=== PATIENT | male | born 1995 | race Caucasian/White ===

== ENCOUNTER 2017-01-08 17:56 | Emergency (ER) | payer OTHER ==
[~2017-01-08] VITALS: Ht 170.2 cm; Wt 63.9 kg
[2017-01-08 18:04] VITALS: PULSE 64; TEMP 36.7; O2SAT 100; Ht 170.2 cm; Wt 63.9 kg
[2017-01-08] MEDS ORDERED: CETI10TA84 PO (18:17)
[2017-01-08] MEDS ORDERED: FLUT1INH7 INH (18:17)
[2017-01-08] MEDS ORDERED: MONT1TAB3 PO (18:17)
[2017-01-08] MEDS ORDERED: CLR10 PO (18:17)
[2017-01-08 18:18] VITALS: BP 162/83
[2017-01-08] MEDS ORDERED: GELATIN SPONGE 12-7MM EXT STA (18:18)
--- NOTE | 2017-01-08 19:09 | EMERGENCY ROOM VISIT NOTE ---
ED Visit Note First contact with patient: 18:12 Chief Complaint: "Deep cut finger right middle". History of Present Illness: This patient is a 21-year-old male who presents to the Emergency Department via private vehicle for evaluation of their R 3rd digit laceration. Patient sustained the laceration while opening a bottle and the top broke. They report a moderate amount of bleeding initially. They deny any numbness or tingling into the distal extremity. Patient rates his current discomfort as a 2/10. Patient's Tetanus status is currently up-to-date. Medications: As noted below Allergies: azithromycin, eggs PMH: No pertinent SHx: Pt. lives in [place] ROS: All pertinent positive and negative review of systems are appropriately documented in the History of Present Illness. Physical Exam: VITAL SIGNS - Vital signs and nursing notes were reviewed. Stable. GENERAL - 21-year-old male appearing his stated age who is in no acute distress. Communicates well with provider and answers questions appropriately. SKIN - There is a 0.4 cm long laceration/avulsion noted to the lateral aspect of the R 3rd digit. The edges DO NOT gape apart with traction. No foreign bodies appreciated. Upon further examination there are no deep structures including vessel, tendon, or bony structures appreciated. There is no active bleeding noted. MUSCULOSKELETAL - Laceration as described above. Full range of motion of the affected digit. NEUROLOGIC - Spinothalamic tract was found to be intact with ability to discriminate sharp versus dull sensation. No sensory defects of the dorsal column were appreciated utilizing light touch for evaluation. VASCULAR - Capillary refill was brisk. ED Course: Patient was seen and evaluated by myself. Costs and benefits of performing primary wound closure versus no repair were discussed with the patient who verbalizes understanding. Verbal consent was obtained prior to performing the procedure. Benefit of anesthetization was discussed, and the decision was made to clean the wound and applied Gelfoam rather than inject with needles as the risk outweighs the benefit. The wound was cleansed and prepped in the typical sterile fashion utilizing normal saline and Betadine. The wound was sterilely draped. Once proper anesthetization was established, the wound was further examined and demonstrated no deep involvement, rather he has an avulsion that is superficial but appears to have sliced the superficial veins perioral to the long edge causing continued bleeding. The wound was copiously irrigated with normal saline and Betadine. Gelfoam was applied without good hemostasis. I then applied tourniquet and applied Dermabond with slight bleeding continuing therefore Gelfoam was applied to this. This was with good hemostasis. Patient tolerated this well. Patient tolerated the procedure well. No complications were met. Neurovascularly intact postprocedure. In the evaluation and treatment of this patient, the following differential diagnoses were considered: Finger Fracture, Finger Dislocation, Finger Sprain, Finger Contusion, Jersey Finger, or Mallet Finger. Current/Historical Medications Scheduled Cetirizine (Zyrtec), 10 MG PO DAILY Fluticasone Furoate-Vilanterol (Breo Ellipta 200-25 Mcg/INH), 1 PUFF INH QAM Montelukast Sodium (Singulair), 10 MG PO QPM Scheduled PRN Loratadine (Claritin), 10 MG PO DAILY PRN for Seasonal Allergies Allergies Coded Allergies: Azithromycin (Verified Allergy, Severe, RASH, 01/08/17) Uncoded Allergies: EGGS (Allergy, Severe, ANAPHYLAXIS, 01/08/17) Vital Signs Date Time Temp Pulse Resp B/P (MAP) Pulse Ox O2 Delivery O2 Flow Rate FiO2 01/08/17 18:18 162/83 01/08/17 18:04 36.7 64 16 100 Room Air Departure Information Impression Primary Impression: Laceration Dispostion Home / Self-Care Condition GOOD Patient Instructions My [facility] Additional Instructions You have been treated in the Emergency Department today for your finger Avulsion. Leave the GELFOAM and dressing in place for the next 48 hours. Keep the dressing clean and dry until time for removal. To remove the GELFOAM dressing, remove the overlying tape and then soak the wound in warm water until the piece of GELFOAM can be easily removed. Glue will dissolve. Proper wound care is essential for adequate wound healing and infection prevention. You can shower and clean the wound with soap and water. Do not scour over the wound, pat dry with a towel. You can use an antibiotic ointment with a dressing/bandage over the wound for the next 3-4 days. After this time you may leave the wound dry and open to the air. Look for signs of infection of the wound including: increased pain, swelling, foul discharge, streaking, or increased temperature. If any of these are noticed you should return to the Emergency Department for further assessment and treatment. As with any laceration you may have received nerve damage to the surrounding tissues. This damage could be permanent. For pain control, you can use the following [id number] medicines: - Regular strength (325mg/tab) Tylenol (acetaminophen) 2 tabs every 4-6 hours as needed. Do not exceed 12 tablets in a 24 hour period. Avoid taking more than 3 grams (3000 mg) of Tylenol per day. This includes any other sources of acetaminophen you may take on a regular basis. - Regular strength (200 mg/tab) Advil (ibuprofen) 1-2 tabs every 4-6 hours as needed. Do not exceed a dose of 3200 mg per day. Return to the emergency department if your symptoms worsen despite treatment course outlined above.
== END 2017-01-08 19:18 | disposition home or self-care (01) ==
LOC: C.EDB 18:00 → C.EDD 19:18
DX: S61.212A Laceration without foreign body of right middle finger without damage to nail, initial encounter (principal); W45.8XXA Other foreign body or object entering through skin, initial encounter; Z88.1 Allergy status to other antibiotic agents; Z91.012 Allergy to eggs